=== PATIENT | female | born 2000 | race Caucasian/White ===

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

== ENCOUNTER 2023-01-02 16:44 | Emergency (ER) | payer BC ==
[2023-01-02] MEDS ORDERED: Ondansetron 4 MG/2 ML SDV IVPUSH ONE (17:27)
[2023-01-02] MEDS ORDERED: Sodium Chloride 0.9% 1,000 ML IV ONE (17:48)
[2023-01-02 18:00] LABS: CARBON DIOXIDE,CO2 23.9 mmol/L (21.0-32.0); POTASSIUM,K 3.6 mmol/L (3.5-5.1)
[2023-01-02 19:14] VITALS: BP 116/67; PULSE 79
[2023-01-02] MEDS ORDERED: cefTRIAXone 1 GM in Sodium Chloride 0.9% 50 ML IV ONE (19:39)
[2023-01-02 20:52] LABS: C. TRACHOMATIS BY PCR DETECTED; N. GONORRHOEAE BY PCR NOT DETECTED
== END 2023-01-02 20:35 | disposition home or self-care (01) ==
LOC: MW.ED 16:44
DX: N39.0 Urinary tract infection, site not specified (principal); A74.9 Chlamydial infection, unspecified
CPT/HCPCS: 36415; 80053; 81001; 83690; 84703; 85025; 87086; 87491; 87591; 96361; 96365; 96375; 99284; J0696; J2405; J3490; J7030

== ENCOUNTER 2025-07-07 02:44 | Emergency (ER) | payer BC ==
[2025-07-07] MEDS ORDERED: Sodium Chloride 0.9% 2.5 ML Syringe FLUSH PRN (03:13)
[2025-07-07] MEDS ORDERED: Sodium Chloride 0.9% 10 ML Syringe FLUSH PRN (03:13)
[2025-07-07] MEDS: Ondansetron 4 MG/2 ML SDV IVPUSH ONE (03:14)
[2025-07-07 03:17] LABS: BASOPHILS ABSOLUTE AUTO 0.07 K/uL (0.00-0.20); BASOPHILS PERCENT AUTO 0.6 % (0.0-1.0); EOSINOPHILS ABSOLUTE AUTO 0.03 K/uL (0.00-0.45); EOSINOPHILS PERCENT AUTO 0.3 % (0.0-6.0); IMMATURE GRAN ABSOLUTE AUTO 0.03 K/uL (0.00-0.05); IMMATURE GRAN PERCENT AUTO 0.3 % (0.0-0.4); LYMPHOCYTES ABSOLUTE AUTO 1.63 K/uL (1.00-4.80); LYMPHOCYTES PERCENT AUTO 14.8 % (24.0-44.0); MEAN PLATELET VOLUME 9.5 fL (9.4-12.3); MONOCYTES ABSOLUTE AUTO 0.77 K/uL (0.00-0.80); MONOCYTES PERCENT AUTO 7.0 % (0.0-8.0); NEUTROPHILS ABSOLUTE AUTO 8.52 K/uL (1.80-7.70); NEUTROPHILS PERCENT AUTO 77.0 % (41.0-71.0); NRBC ABSOLUTE 0.00 K/uL (0.00-0.02); NRBC PERCENT 0.0 /100WBC (0.0-0.2); PLATELET COUNT,PLT 284 K/uL (150-400); RED BLOOD CELL COUNT 4.63 M/uL (4.10-5.30); WHITE BLOOD CELL COUNT,WBC 11.05 K/uL (3.9-11.3)
[2025-07-07] MEDS: Ketorolac 30 MG/ML SDV IVPUSH ONE (03:25)
[2025-07-07 03:36] LABS: A/G RATIO 1.5 (0.9-1.6); ALANINE AMINOTRANSFERASE,ALT 12.0 IU/L (14-63); ASPARTATE AMNIOTRANSFERASE,AST 17.0 IU/L (15-37); BILIRUBIN TOTAL 0.4 mg/dL (0.2-1.0); BLOOD UREA NITROGEN,BUN 10.0 mg/dL (7.0-18.0); CARBON DIOXIDE,CO2 18.8 mmol/L (21.0-32.0); CHLORIDE,CL 101.0 mmol/L (98-107); CREATININE 1.1 mg/dL (0.6-1.0); EST CRCL DRUG DOSING (CG) 62.37 mL/min; GLUCOSE RANDOM 122.0 mg/dL (74-106); POTASSIUM,K 3.3 mmol/L (3.5-5.1); PROTEIN TOTAL,TP 7.9 g/dL (6.4-8.2); SODIUM,NA 141.0 mmol/L (136-145)
[2025-07-07 03:38] LABS: ESTIMATED GFR 72.0 mL/min (>60)
[2025-07-07] MEDS: Iopamidol 755 MG/ML 500 ML Multipack Bottle IVPUSH STA (04:04)
[2025-07-07 04:16] LABS: APPEARANCE,URINE CLEAR; GLUCOSE,URINE NEGATIVE (NEGATIVE); OCCULT BLOOD,URINE NEGATIVE (NEGATIVE)
[2025-07-07] MEDS: droPERidol 2.5 MG/ML SDV IVPUSH ONE (05:14)
[2025-07-07] MEDS: Magnesium Citrate Solution 296 ML Bottle PO ONE (05:22)
[2025-07-07 05:28] VITALS: BP 95/76; PULSE 67
== END 2025-07-07 05:32 | disposition home or self-care (01) ==
LOC: MW.ED 02:44
DX: K59.00 Constipation, unspecified (principal); Z75.3 Unavailability and inaccessibility of health-care facilities
CPT/HCPCS: 36415; 74177; 80053; 81003; 83690; 84703; 85025; 96361; 96374; 96375; 99284; A9270; J1790; J1885; J2405; J7030; Q9967